=== PATIENT | female | born 1940 | race Asian ===

== ENCOUNTER 2018-08-12 10:34 | Inpatient (IN) | END 2018-08-13 16:00 | disposition home or self-care (01) | DRG 310 ==

== ENCOUNTER 2018-09-10 21:25 | Inpatient (IN) | payer OTHER ==
[~2018-09-10] VITALS: Ht 160 cm; Wt 80.5 kg
[~2018-09-10 21:25] MED LIST: ACET-2047 PO; APIX5TAB PO; BENA10TA4 PO; CARSR60 PO; CLC1500T PO; METO-319 PO; NITR0.4T32 SL
[2018-09-10] MEDS ORDERED: SODIUM CHLORIDE 0.9% 1L BAG IV* STA (21:46)
[2018-09-10] MEDS ORDERED: CEFEPIME 2GM/50 ML (PMX) 50 ML IVPB STA (21:46)
[2018-09-10] MEDS ORDERED: ACETAMINOPHEN 325 MG TAB PO STA (21:46)
[2018-09-10] MEDS ORDERED: VANCOMYCIN 1 GM (PMX) 250 ML IVPB ONE (22:00)
[2018-09-10] MEDS ORDERED: ONDANSETRON 4 MG INJ IV PRN (23:00)
[2018-09-10] MEDS ORDERED: ACETAMINOPHEN 325 MG TAB PO PRN (23:00)
[2018-09-10] MEDS ORDERED: LOSA1TAB25 PO (23:19)
[2018-09-10] MEDS ORDERED: AMLO-147 PO (23:19)
[2018-09-10] MEDS ORDERED: MULTI PO (23:20)
--- NOTE | 2018-09-10 23:25 | ERD ---
ER Documentation Chief Complaint Chief Complaint right abdominal pain x since last night at 8 pm HPI 78-year-old female presents with the family. The patient reports right-sided abdominal pain since last night. The pain is sharp, 8 out of 10. She feels generalized weakness and malaise. Patient is noted to have low blood pressure at triage. She describes anorexia and low-grade fever. No prior abdominal surgical history. ROS All systems reviewed and are negative except as per history of present illness. Medications Home Meds Active Scripts Diltiazem Hcl* (Cardizem SR*) 60 Mg Capsr, 60 MG PO DAILY, #30 CAP Prov:MONTENGUYỄN GALICIA V. HOUSING INSPECTOR 08/13/18 Reported Medications Multivitamins* (Theragran*) 1 Tab Tab, 1 TAB PO DAILY, TAB 09/10/18 Amlodipine Besylate* (Amlodipine Besylate*) 10 Mg Tablet, 10 MG PO DAILY, #30 TAB 09/10/18 Losartan-Hydrochlorothiazide (Losartan-HCTZ) 100-25 Mg Tab, 1 TAB PO DAILY, TAB 09/10/18 Nitroglycerin* (Nitroglycerin* SL) 0.4 Mg Tab.subl, 0.4 MG SL Q5MIN PRN for CHEST PAIN, BOTTLE 08/12/18 Metoprolol Succinate* (Toprol XL*) 50 Mg Tab.er.24h, 50 MG PO DAILY, #30 TAB 08/12/18 Apixaban* (Eliquis*) 5 Mg Tablet, 5 MG PO BID, TAB 08/12/18 Acetaminophen* (Acetaminophen*) 650 Mg Tablet, 650 MG PO Q6H PRN for PAIN AND OR ELEVATED TEMP, #30 TAB 08/12/18 Discontinued Reported Medications Calcium Carbonate* (Caltrate-600*) 600 MG Calcium Tab, 600 MG PO BID, TAB (1500 mg Calcium Carbonate) 08/12/18 Benazepril Hcl* (Benazepril Hcl*) 10 Mg Tablet, 30 MG PO DAILY, #30 TAB 08/12/18 Discontinued Scripts Diltiazem Hcl* (Cardizem SR*) 60 Mg Capsr, 60 MG PO DAILY, #60 CAP Prov:MONTEJASS GALICIAA V. HOUSING INSPECTOR 08/13/18 Allergies Allergies: Coded Allergies: No Known Allergy (Unverified , 08/12/18) PMhx/Soc History of Surgery: No Anesthesia Reaction: No Hx Neurological Disorder: No Hx Respiratory Disorders: No Hx Cardiac Disorders: Yes (AF) Hx Psychiatric Problems: No Hx Miscellaneous Medical Probl: No Hx Alcohol Use: No Hx Substance Use: No Hx Tobacco Use: No FmHx Family History: No diabetes Physical Exam Vitals Vital Signs Date Temp Pulse Resp B/P (MAP) Pulse Ox O2 O2 Flow FiO2 Time Delivery Rate 09/10/18 89 23 102/65 94 Room Air 23:20 (77) 09/10/18 86 20 99/67 (78) 99 Room Air 22:46 09/10/18 100.0 22:28 09/10/18 100.0 82 18 86/51 (63) 96 21:29 Physical Exam General: Well developed, well nourished, no acute distress Head: Normocephalic, atraumatic. Eyes: Pupils equally reactive, EOM intact ENT: Moist mucous membranes Neck: Supple, no lymphadenopathy Respiratory: Lungs clear bilaterally, no distress Cardiovascular: Irregular, no murmurs, rubs, or gallops Abdominal: Soft, focal tenderness to the right lower quadrant at McBurney's point : Deferred MSK: No edema, no unilateral swelling, 5/5 strength Neurologic: Alert and oriented, moving all extremities, normal speech, no focal weakness, no cerebellar signs Skin: No rash Psych: Normal mood Result Diagram: 09/10/18220109/10/182201 Results 24 hrs Laboratory Tests Test 09/10/18 22:02 09/10/18 22:06 White Blood Count 12.7 10^3/ul Red Blood Count 3.82 10^6/ul Hemoglobin 11.5 g/dl Hematocrit 34.4 % Mean Corpuscular Volume 90.1 fl Mean Corpuscular Hemoglobin 30.1 pg Mean Corpuscular Hemoglobin Concent 33.4 g/dl Red Cell Distribution Width 13.5 % Platelet Count 49 10^3/UL Mean Platelet Volume 11.7 fl Immature Granulocytes % 0.400 % Neutrophils % 89.5 % Lymphocytes % 5.7 % Monocytes % 4.2 % Eosinophils % 0.0 % Basophils % 0.2 % Nucleated Red Blood Cells % 0.0 /100WBC Immature Granulocytes # 0.050 10^3/ul Neutrophils # 11.3 10^3/ul Lymphocytes # 0.7 10^3/ul Monocytes # 0.5 10^3/ul Eosinophils # 0.0 10^3/ul Basophils # 0.0 10^3/ul Nucleated Red Blood Cells # 0.0 10^3/ul Prothrombin Time 16.0 Sec Prothrombin Time Ratio 1.3 INR International Normalized Ratio 1.27 Activated Partial Thromboplast Time 37.8 Sec Sodium Level 137 mmol/L Potassium Level 3.3 mmol/L Chloride Level 97 mmol/L Carbon Dioxide Level 30 mmol/L Anion Gap 10 Blood Urea Nitrogen 30 mg/dl Creatinine 1.49 mg/dl Est Glomerular Filtrat Rate mL/min mL/min Glucose Level 173 mg/dl Calcium Level 9.3 mg/dl Total Bilirubin 0.6 mg/dl Direct Bilirubin 0.00 mg/dl Indirect Bilirubin 0.6 mg/dl Aspartate Amino Transf (AST/SGOT) 24 IU/L Alanine Aminotransferase (ALT/SGPT) 12 IU/L Alkaline Phosphatase 58 IU/L Troponin I < 0.012 ng/ml Total Protein 7.3 g/dl Albumin 3.9 g/dl Globulin 3.40 g/dl Albumin/Globulin Ratio 1.14 Lipase 61 U/L POC Venous Lactate 1.7 mmol/L Current Medications Medications Dose Sig/Ganesh Start Time Status Last (Trade) Ordered Route PRN Stop Time Admin Dose Reason Admin Sodium 2,050 ml BOLUS OVER 2 09/10/18 DC 09/10/18 Chloride HOURS STAT 21:46 22:39 (NS) IV* 09/10/18 21:48 650 mg ONCE STAT 09/10/18 DC 09/10/18 Acetaminophen PO 21:46 22:28 (Tylenol 09/10/18 21:48 Tab) Cefepime HCl 50 ml @ ONCE STAT 09/10/18 DC 09/10/18 100 mls/hr IVPB 21:46 22:26 09/10/18 22:15 Vancomycin 250 ml @ ONCE ONCE 09/10/18 09/10/18 HCl 125 mls/hr IVPB 22:00 23:03 09/10/18 23:59 Ondansetron 4 mg ER BRIDGE 09/10/18 HCl (Zofran PRN IV 23:00 Inj) NAUSEA AND/OR 09/11/18 22:59 VOMITING 650 mg ER BRIDGE 09/10/18 Acetaminophen PRN PO MILD 23:00 (Tylenol PAIN(1-3)OR 09/11/18 22:59 Tab) ELEVATED TEMP Procedures/MDM EKG, MONITORS, & DIAGNOSTIC IMAGING: EKG: I reviewed and interpreted a 12-lead EKG. Rhythm: Irregularly irregular ST Changes: No contiguous ST segment elevations T waves: No contiguous T wave inversions Impression: A. fib rate controlled Chest x-ray: I reviewed and interpreted a 1 view of the chest Mediastinum: No enlargement Cardiac silhouette: No cardiomegaly Airspace: Clear lung fish bilaterally without evidence of pneumothorax Bones: No evidence of fracture CT abdomen and pelvis: IMPRESSION: CT of the abdomen pelvis demonstrate changes consistent with acute appendicitis with possible early perforation. No abscess formation is seen. There is no free air. Likely fatty infiltration liver. Cholelithiasis. LAB INTERPRETATION: * The patient is leukocytosis with left shift, thrombus cytopenia 49 * Chemistry shows slight renal insufficiency slightly worse than baseline. Normal lactic acid 1.7, negative troponin MEDICAL DECISION MAKING: The patient presents with low-grade fever, low blood pressure and focal right lower quadrant abdominal pain. This raises the concern for acute appendicitis. The patient needs sepsis screening, fluid resuscitation and broad-spectrum antibiotics. ER COURSE: * Patient was given a 30 cc/kg bolus of saline. Blood cultures prior to broad- spectrum antibiotics in the form of vancomycin and cefepime. Pain control medication provided. * Antipyretic provided * the patient's laboratory testing and diagnostic imaging confirm acute appendicitis with possible perforation. * The patient's blood pressure dramatically improved with fluid resuscitation. Her lactic acid is reassuring. I do not believe a central line or pressors are indicated at this time. Continue to monitor. * General surgeon on-call, Dr. Matthew notified of the patient's clinical presentation, diagnosis CONSULTATION: General surgeonDr. Matthew DISPOSITION PLAN: Patient will be admitted to telemetry given the patient's initial low blood pressure Accepting care team and consultations: I discussed the current laboratory data, diagnostic imaging and emergency care provided. Admitting team: Dr. Quevedo Admitting team indication: Insurance directed Sepsis Documentation: Patient's infectious symptoms have not stabilized and the patient is at risk of rapid decompensation. The patient will be admitted for careful hydration, antibiotic therapy, and infectious source control. SEVERE SEPSIS CRITERIA: Infectious source: Acute appendicitis End organ damage indicated by: At this point the patient does not meet criteria for endocrine dysfunction SEPSIS MANAGEMENT Time of recognition of sepsis: Upon MD assessment. Time of recognition of severe sepsis: No severe sepsis at this time. Time of recognition of septic shock: No septic shock at this time. 3 HOUR BUNDLE Blood cultures x 2 before broad-spectrum antibiotics: Yes 30 ml/kg NS bolus completed Initial lactate less than 2 Repeat lactate pending SEPTIC SHOCK ASSESSMENT: No lactic acid > 4.0 No persistent hypotension (SBP < 90 or 40 mmHg drop, MAP < 65) despite 30 mL/kg IV fluid bolus VOLUME REASSESSMENT FOR SEPTIC SHOCK: The patient does not meet criteria for septic shock in the emergency department at this time PERSISTENT HYPOTENSION TREATMENT: Comfort care no Central line not Required Vasopressor started not required I considered further perfusion assessment with CVP measurement, SCVO2, bedside ultrasound volume assessment, passive leg raise, trial of further fluid bolus. And proceeded with 30 ml/kg fluid bolus of NSS, broad spectrum antibiotics, and admission. CRITICAL CARE Critical care time 35 minutes Emergent fluid management while maintaining close respiratory support. Provision of immediate and broad-spectrum antibiotic therapy. Simultaneous assessment for possible sources in order to direct targeted therapy. Consideration for invasive and chemical support to prevent cardiopulmonary collapse. Critical care time is independent of procedures performed. Departure Diagnosis: Primary Impression: Acute appendicitis Acute appendicitis type: with localized peritonitis Appendicitis gangrene presence: unspecified whether gangrene present Appendicitis perforation presence: with perforation Appendicitis abscess presence: without abscess Qualified Codes: K35.32 - Acute appendicitis with perforation and localized peritonitis, without abscess Additional Impressions: Thrombocytopenia Atrial fibrillation with controlled ventricular rate Acute renal insufficiency Sepsis Sepsis type: sepsis due to unspecified organism Qualified Codes: A41.9 - Sepsis, unspecified organism Condition: Stable FORTINO LAURENT MD Sep 10, 2018 23:25
[2018-09-10] MEDS ORDERED: METO-335 PO (23:39)
--- NOTE | 2018-09-10 23:55 | CONS ---
Date/Time of Note Date/Time of Note DATE: 09/10/18 TIME: 23:51 Assessment/Plan Assessment/Plan Assessment/Plan 78-year-old female history of atrial fibrillation hypertension hyperlipidemia presents with reported prior history of worsening right lower quadrant abdominal pain. Evaluation including imaging tests and labs consistent with acute appendicitis possible microperforation without evidence of abscess. I discussed with the patient and her 2 children were present risk benefits alternatives for laparoscopic appendectomy especially the patient on Eliquis. However I did describe the it is unlikely this will resolve on its own and she is would be at further risk of this is done as an emergent basis. Recommendation for laparoscopic appendectomy possible open. The details of procedure risk versus alternatives were discussed at this time patient would like to proceed with recommended procedure last dose of Eliquis was this morning (she is taking this twice a day) , however the risk of delaying surgery for another 24 hours I think is much greater than the potential risk of any wheezing in a patient with a near perforated appendix. Patient agreed to proceed and or team is present we will proceed to the operating room as soon as a room is free. Result Diagram: 09/10/18220109/10/182201 Results 24hrs Laboratory Tests Test 09/10/18 22:02 09/10/18 22:06 White Blood Count 12.7 #H Red Blood Count 3.82 L Hemoglobin 11.5 L Hematocrit 34.4 L Mean Corpuscular Volume 90.1 Mean Corpuscular Hemoglobin 30.1 Mean Corpuscular Hemoglobin Concent 33.4 Red Cell Distribution Width 13.5 Platelet Count 49 L Mean Platelet Volume 11.7 H Immature Granulocytes % 0.400 Neutrophils % 89.5 H Lymphocytes % 5.7 L Monocytes % 4.2 Eosinophils % 0.0 Basophils % 0.2 Nucleated Red Blood Cells % 0.0 Immature Granulocytes # 0.050 H Neutrophils # 11.3 H Lymphocytes # 0.7 L Monocytes # 0.5 Eosinophils # 0.0 Basophils # 0.0 Nucleated Red Blood Cells # 0.0 Prothrombin Time 16.0 H Prothrombin Time Ratio 1.3 INR International Normalized Ratio 1.27 Activated Partial Thromboplast Time 37.8 H Sodium Level 137 Potassium Level 3.3 L Chloride Level 97 Carbon Dioxide Level 30 Anion Gap 10 Blood Urea Nitrogen 30 H Creatinine 1.49 H Est Glomerular Filtrat Rate mL/min Glucose Level 173 Calcium Level 9.3 Total Bilirubin 0.6 Direct Bilirubin 0.00 Indirect Bilirubin 0.6 Aspartate Amino Transf (AST/SGOT) 24 Alanine Aminotransferase (ALT/SGPT) 12 L Alkaline Phosphatase 58 Troponin I < 0.012 Total Protein 7.3 Albumin 3.9 Globulin 3.40 H Albumin/Globulin Ratio 1.14 Lipase 61 POC Venous Lactate 1.7 Consultation Date/Type/Reason Admit Date/Time Date of Consultation: Sep 10, 2018 Type of Consult Surgical consultation Reason for Consultation Abdominal pain CT is consistent with acute appendicitis possible microperforation Requesting Provider: FORTINO LAURENT MD Hx of Present Illness Patient is brought by her children to the emergency room after seeing her primary care doctor earlier today for evaluation of right-sided abdominal pain. Patient states the pain got progressively worse throughout the day she was scheduled to get a outpatient ultrasound but as the pain got worse the presented to the emergency room for evaluation patient has history of hypertension and hyperlipidemia atrial fibrillation for which she is on Eliquis last Eliquis dose was this morning. Patient denies any past surgical history Past Medical History Medications Current Medications Vancomycin HCl 250 ml @ 125 mls/hr ONCE ONCE IVPB Last administered on 09/10/18at 23:03; Admin Dose 125 MLS/HR; Start 09/10/18 at 22:00; Stop 09/10/18 at 23:59 Ondansetron HCl (Zofran Inj) 4 mg ER BRIDGE PRN IV NAUSEA AND/OR VOMITING; Start 09/10/18 at 23:00; Stop 09/11/18 at 22:59 Acetaminophen (Tylenol Tab) 650 mg ER BRIDGE PRN PO MILD PAIN(1-3)OR ELEVATED TEMP; Start 09/10/18 at 23:00; Stop 09/11/18 at 22:59 Allergies: Coded Allergies: No Known Allergy (Unverified , 08/12/18) Exam/Review of Systems Vital Signs Vitals Vital Signs Date Temp Pulse Resp B/P (MAP) Pulse Ox O2 O2 Flow FiO2 Time Delivery Rate 09/10/18 88 19 100/61 97 Room Air 23:30 (74) 09/10/18 100.0 22:28 Exam Gastrointestinal: tender (Right lower quad) Medications Medications Current Medications Vancomycin HCl 250 ml @ 125 mls/hr ONCE ONCE IVPB Last administered on 09/10/18at 23:03; Admin Dose 125 MLS/HR; Start 09/10/18 at 22:00; Stop 09/10/18 at 23:59 Ondansetron HCl (Zofran Inj) 4 mg ER BRIDGE PRN IV NAUSEA AND/OR VOMITING; Start 09/10/18 at 23:00; Stop 09/11/18 at 22:59 Acetaminophen (Tylenol Tab) 650 mg ER BRIDGE PRN PO MILD PAIN(1-3)OR ELEVATED TEMP; Start 09/10/18 at 23:00; Stop 09/11/18 at 22:59 GIOVANNY GANN MD Sep 10, 2018 23:55
[2018-09-11] VITALS (23 sets, daily range): BP systolic 83–117; BP diastolic 47–70; PULSE 73–97; RESP 18–22; Ht 160 cm; Wt 80.5 kg
--- NOTE | 2018-09-11 01:06 | PREAC ---
Date/Time of Note Date/Time of Note DATE: 09/11/18 TIME: 01:04 Anesthesia Eval and Record Evaluation Time Pre-Procedure Interview DATE: 09/11/18 TIME: 01:04 Age 78 Sex female NPO: 6 hrs (light meal) Preoperative diagnosis acute appendicitis Planned procedure laparoscopic appendicitis Past Medical History Past Medical History: Includes Cardio: HTN, Dyslipidemia, Arrythmia (atrial fibrillation) Surgery & Anesthesia Issues No known issue Meds Anticoagulation: Yes (last dose yesterday morning ) Beta Aron within 24 hr: Yes Reason Beta Aron not given: Bradycarida, Hypotension Active Scripts Diltiazem Hcl* (Cardizem SR*) 60 Mg Capsr, 60 MG PO DAILY, #30 CAP Prov:MONTENGUYỄNERICA Stephens SPA MANAGER/ESTHETICIAN 08/13/18 Reported Medications Metoprolol Succinate* (Toprol XL*) 25 Mg Tab.sr.24h, 25 MG PO QPM, #30 TAB 09/10/18 Multivitamins* (Theragran*) 1 Tab Tab, 1 TAB PO DAILY, TAB 09/10/18 Amlodipine Besylate* (Amlodipine Besylate*) 10 Mg Tablet, 10 MG PO DAILY, #30 TAB 09/10/18 Losartan-Hydrochlorothiazide (Losartan-HCTZ) 100-25 Mg Tab, 1 TAB PO DAILY, TAB 09/10/18 Nitroglycerin* (Nitroglycerin* SL) 0.4 Mg Tab.subl, 0.4 MG SL Q5MIN PRN for CHEST PAIN, BOTTLE 08/12/18 Metoprolol Succinate* (Toprol XL*) 50 Mg Tab.er.24h, 50 MG PO QAM, #30 TAB 08/12/18 Apixaban* (Eliquis*) 5 Mg Tablet, 5 MG PO BID, TAB 08/12/18 Acetaminophen* (Acetaminophen*) 650 Mg Tablet, 650 MG PO Q6H PRN for PAIN AND OR ELEVATED TEMP, #30 TAB 08/12/18 Discontinued Reported Medications Calcium Carbonate* (Caltrate-600*) 600 MG Calcium Tab, 600 MG PO BID, TAB (1500 mg Calcium Carbonate) 08/12/18 Benazepril Hcl* (Benazepril Hcl*) 10 Mg Tablet, 30 MG PO DAILY, #30 TAB 08/12/18 Discontinued Scripts Diltiazem Hcl* (Cardizem SR*) 60 Mg Capsr, 60 MG PO DAILY, #60 CAP Prov:NGUYỄN MONTE VEvgeny ELKINS 08/13/18 Current Medications Ondansetron HCl (Zofran Inj) 4 mg ER BRIDGE PRN IV NAUSEA AND/OR VOMITING; Start 09/10/18 at 23:00; Stop 09/11/18 at 22:59 Acetaminophen (Tylenol Tab) 650 mg ER BRIDGE PRN PO MILD PAIN(1-3)OR ELEVATED TEMP; Start 09/10/18 at 23:00; Stop 09/11/18 at 22:59 Meds reviewed: Yes Allergies Coded Allergies: No Known Allergy (Unverified , 08/12/18) Allergies Reviewed: Yes Labs/Studies Labs Reviewed: Reviewed by anesthesiologist Result Diagram: 09/10/18220109/10/182201 Laboratory Tests 09/10/18 22:02 test: N/A Pre-procedure Exam Last vitals Vital Signs Date Temp Pulse Resp B/P (MAP) Pulse Ox O2 O2 Flow FiO2 Time Delivery Rate 09/11/18 98.6 80 21 100/61 97 Room Air 00:21 (74) Airway: Adequate mouth opening, Adequate thyromental dist Mallampati: Mallampati II Teeth: Normal Lung: Normal Heart: Normal ASA Physical Status ASA physical status: 3 Emergency: None Planned Anesthetic General/MAC: ETT Planned Pain Management Parenteral pain med Pre-operative Attestations Prior to commencing anesthesia and surgery, the patient was re-evaluated, there was verification of: *The patient's identity *The results of appropriate recent lab work and preoperative vital signs *The above evaluation not changing prior to induction *Anesthetic plan, risk benefits, alternative and complications discussed with patient/family; questions answered; patient/family understands, accepts and wishes to proceed. SANYA MEDEL MD Sep 11, 2018 01:06
[2018-09-11] MEDS ORDERED: BUPIVACAINE 0.5%/EPI (SDV) 30 ML INJ ONE (01:22)
[2018-09-11] MEDS ORDERED: FENTAnyl 50 MCG/ML VIAL ONE (01:29)
[2018-09-11] MEDS ORDERED: LIDOCAINE 2% (SDV) 5 ML INJ ONE (01:29)
[2018-09-11] MEDS ORDERED: ONDANSETRON 4 MG INJ IV PRN ×2 (01:30→03:00)
[2018-09-11] MEDS ORDERED: HYDROmorphONE 1 MG/5 ML IV SYRINGE IV PRN ×2 (01:30)
[2018-09-11] MEDS ORDERED: DIPHENHYDRAMINE 50 MG INJ IV PRN (01:30)
[2018-09-11] MEDS ORDERED: FENTAnyl 50 MCG/ML VIAL IV PRN (01:30)
[2018-09-11] MEDS ORDERED: LABETALOL HCL 20MG INJ IV PRN (01:30)
[2018-09-11] MEDS ORDERED: MEPERIDINE 25 MG INJ IV PRN (01:30)
[2018-09-11] MEDS ORDERED: PROCHLORPERAZINE 10 MG INJ IV PRN (01:30)
[2018-09-11] MEDS ORDERED: hydrALAzine 20 MG INJ IV PRN (01:30)
[2018-09-11] MEDS ORDERED: FAMOTIDINE 20 MG INJ ONE (01:34)
[2018-09-11] MEDS ORDERED: PHENYLephrine (100 MCG/ML) 10ML SYG ONE ×2 (01:39→02:43)
[2018-09-11] MEDS ORDERED: LIDOCAINE 1% (MPF) 30 ML INJ ONE (01:56)
[2018-09-11] MEDS ORDERED: SUCCINYLCHOLINE CHLORIDE 100 MG/5 ML SYG IV ONE (02:05)
[2018-09-11] MEDS ORDERED: PROPOFOL 20 ML ONE (02:05)
[2018-09-11] MEDS ORDERED: ROCURONIUM 50 MG INJ ONE (02:05)
[2018-09-11] MEDS ORDERED: ONDANSETRON 4 MG INJ ONE (02:06)
[2018-09-11] MEDS ORDERED: DEXAMETHASONE 4 MG/ML 5 ML INJ ONE (02:06)
[2018-09-11] MEDS ORDERED: GLYCOPYRROLATE 0.4 MG INJ ONE (02:32)
[2018-09-11] MEDS ORDERED: NEOSTIGMINE 3 MG/3 ML SYRINGE ONE (02:32)
--- NOTE | 2018-09-11 02:54 | OPR ---
Date/Time of Note Date/Time of Note DATE: 09/11/18 TIME: 02:48 Operative Report Procedure Date: Sep 11, 2018 Preoperative Diagnosis Acute appendicitis possible perforation Postoperative Diagnosis Perforated appendicitis with peritonitis Operation/Procedure Performed Laparoscopic appendectomy and abdominal washout Surgeon Giovanny Matthew MD see signature line Java Programming Professor None Anesthesia Type: general Anesthesiologist: SANYA MEDEL MD Estimated Blood Loss: minimal Transfusion none Specimen Appendix and peritoneal fluid for culture Grafts/Implants none Tubes/Drains None Complications none Pt Condition Post Procedure: stable Disposition: PACU Indications Patient presented to the emergency room with several hours of worsening abdom inal pain migrating to the right lower quadrant. Presented to primary care doctor earlier in the day and was going to have outpatient ultrasound however his pain worsened she presented to the emergency room for evaluation she was noted to be relatively hypotensive complaining of severe pain in the right lower quadrant labs revealed mildly elevated white blood cell count CAT scan showed appendicitis with possible perforation with some fluid and air around the appendix. I saw the patient in consultation in the emergency room and recommended urgent lap laparoscopic appendectomy patient also has been taking Eliquis for her atrial fibrillation last dose was this morning she did not take her evening dose. 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 (This is a chronic condition however). In addition with perforation she has increased risk for postoperative complications both immediate and long-term with possible intra-abdominal or pelvic abscesses which may be need to be treated further. Patient was seen together with her son and agreed to proceed with the above recommendation. Procedure Description Patient brought to the operating placed supine position general anesthesia administered with endotracheal intubation the patient prepped draped standard sterile fashion timeout was completed. A Veress needle was used left upper quadrant Carrero's point insufflation delivered to maintain pneumoperitoneum 50 was mercury throughout the procedure course of marker was used half percent Marcaine with epinephrine was used to infiltrate the trocar sites a small stab incision was made 4 cm above the umbilicus and a 5 mm trocar was inserted under direct visualization with 30 degrees femoral laparoscope the varies needle was removed immediately was noted that there was peritonitis with fibrinous exudate and pus in multiple areas. The 2 additional trochars infraumbilical and suprapubic 12 mm trocar was inserted next patient was placed in right side up and slight rounded buried position the abdomen was irrigated and aspirated and some the accumulated fluid on the right gutter was aspirated and sent for Gram stain aerobes anaerobes and fungal. The cecum was identified and the appendix was markedly thickened there was an obvious perforation with a gangrenous midportion of the appendix. This was able to be elevated and from adjacent adherent loops of bowel and with [place] dissector a window was made at the base of the appendix and the mesoappendix. An [place] 30 mm vascular load was used to come across the base of the appendix and a second application for the mesoappendix. There was slight oozing which was controlled with monopolar cautery. The abdomen was irrigated with 2 L of warm normal saline up to the diaphragm down to the pelvis and the patient was positioned and then alternating positions to accumulated aspirated most of the fluid. As a secondary reinforcement for hemostasis 5 cc of FloSeal were instilled along the staple line. Inspection for any further bleeding revealed that there was good hemostasis the pneumoperitoneum was allowed to return to normal as the trochars were removed because of the patient's thick subcutaneous tissue was not felt necessary to close the 12 mm port site. Skin incisions closed with 4-0 Monocryl both buried subcuticular and interrupted on the skin and reinforced with Dermabond. Patient was explained the operative brought recovery in stable condition. Sponge needle count correct x2. GIOVANNY MATTHEW MD Sep 11, 2018 02:54
[2018-09-11] MEDS ORDERED: ACETAMINOPHEN 325 MG TAB PO PRN (03:00)
[2018-09-11] MEDS ORDERED: HYDROmorphONE 0.5 MG/0.5 ML SYG IV PRN (03:00)
[2018-09-11] MEDS ORDERED: EPHEDrine SULFATE 50 MG/5 ML SYG IV PRN (03:00)
[2018-09-11] MEDS ORDERED: METOCLOPRAMIDE 10 MG INJ IV PRN (03:00)
--- NOTE | 2018-09-11 03:01 | PAC ---
Date/Time of Note Date/Time of Note DATE: 09/11/18 TIME: 02:59 Post-Anesthesia Notes Post-Anesthesia Note Last documented vital signs Vital Signs Date Temp Pulse Resp B/P (MAP) Pulse Ox O2 O2 Flow FiO2 Time Delivery Rate 09/11/18 98.6 80 21 100/61 97 Room Air 00:21 (74) Activity: WNL Respiratory function: WNL Cardiovascular function: WNL Mental status: Baseline Pain reasonably controlled: Yes Hydration appropriate: Yes Nausea/Vomiting absent: Yes Comments BP: 91/60 HR: 75 RR: 15 T: 98.6 SaO2: 97% SANYA MEDEL MD Sep 11, 2018 03:01
[2018-09-11] MEDS: D5W-0.45 NACL + KCL 20 MEQ 1,000 ML IV SCH ×4 (04:07→22:47)
[2018-09-11] MEDS ORDERED: NITROGLYCERIN (SL) 0.4 MG TAB SL PRN (05:00)
[2018-09-11] MEDS ORDERED: SOD CHLORIDE 0.9% 250 ML IV ONE (05:00)
[2018-09-11] MEDS: PIPER-TAZO 3.375 GM IV (PMX) 100 ML IVPB SCH ×4 (05:16→23:42)
--- NOTE | 2018-09-11 06:55 | HP ---
Date/Time of Note Date/Time of Note DATE: 09/11/18 TIME: 06:53 Assessment/Plan VTE Prophylaxis [place] [facility] risk: 5 SCD applied ([place] [facility] Yes Pharmacological prophylaxis: heparin Lines/Catheters IV C[facility]ter Type (from [facility]): Peripheral IV Urinary Cath still in place: No Assessment/Plan Assessment/Plan 1. Perforated appendicitis: Status post laparoscopic appendectomy -Advance diet as tolerated -Follow-up surgical recommendations 2. Hypertension: BP on the lower side and as such we will hold BP meds for now 3. Atrial fibrillation: Rate controlled. Hold diltiazem given BP on the lower side. Hold Eliquis for now until ok'd by surgery to resume Result Diagram: 09/10/18 2202 09/11/18 0507 Results 24hrs Laboratory Tests Test 09/10/18 22:02 09/10/18 22:06 09/11/18 00:06 09/11/18 00:26 White Blood Count 12.7 #H Red Blood Count 3.82 L Hemoglobin 11.5 L Hematocrit 34.4 L Mean Corpuscular 90.1 Volume Mean Corpuscular 30.1 Hemoglobin Mean Corpuscular 33.4 Hemoglobin Concent Red Cell 13.5 Distribution Width Platelet Count 49 L Mean Platelet Volume 11.7 H Immature 0.400 Granulocytes % Neutrophils % 89.5 H Lymphocytes % 5.7 L Monocytes % 4.2 Eosinophils % 0.0 Basophils % 0.2 Nucleated Red Blood 0.0 Cells % Immature 0.050 H Granulocytes # Neutrophils # 11.3 H Lymphocytes # 0.7 L Monocytes # 0.5 Eosinophils # 0.0 Basophils # 0.0 Nucleated Red Blood 0.0 Cells # Prothrombin Time 16.0 H Prothrombin Time 1.3 Ratio INR International 1.27 Normalized Ratio Activated 37.8 H Partial Thromboplast Time Sodium Level 137 Potassium Level 3.3 L Chloride Level 97 Carbon Dioxide Level 30 Anion Gap 10 Blood Urea Nitrogen 30 H Creatinine 1.49 H Est Glomerular Filtrat Rate mL/min Glucose Level 173 Calcium Level 9.3 Total Bilirubin 0.6 Direct Bilirubin 0.00 Indirect Bilirubin 0.6 Aspartate Amino 24 Transf (AST/SGOT) Alanine 12 L Aminotransferase (AL T/SGPT) Alkaline Phosphatase 58 Troponin I < 0.012 Total Protein 7.3 Albumin 3.9 Globulin 3.40 H Albumin/Globulin 1.14 Ratio Lipase 61 POC Venous Lactate 1.7 1.3 Urine Color YELLOW Urine Clarity CLEAR Urine pH 5.0 Urine Specific 1.017 [place] Urine Ketones TRACE A Urine Nitrite NEGATIVE Urine Bilirubin NEGATIVE Urine Urobilinogen NEGATIVE Urine Leukocyte 1+ H Esterase Urine Microscopic 1 RBC Urine Microscopic 8 H WBC Urine Mucus FEW A Urine Hemoglobin NEGATIVE Urine Glucose 1+ H Urine Total Protein NEGATIVE Test 09/11/18 01:25 09/11/18 05:07 Lactic Acid Level 1.4 Sodium Level 139 Potassium Level 3.5 Chloride Level 102 Carbon Dioxide Level 28 Anion Gap 9 Blood Urea Nitrogen 23 H Creatinine 0.95 Est Glomerular Filtrat Rate mL/min Glucose Level 163 Calcium Level 7.9 L Total Bilirubin 0.5 Direct Bilirubin 0.00 Indirect Bilirubin 0.5 Aspartate Amino 21 Transf (AST/SGOT) Alanine 17 Aminotransferase (AL T/SGPT) Alkaline Phosphatase 39 L Total Protein 6.1 # Albumin 3.1 L Globulin 3.00 Albumin/Globulin 1.03 Ratio HPI/ROS Admit Date/Time Admit Date/Time Hx of Present Illness This is a 78-year-old female with a history of hypertension and atrial fibrillation who presents the ER complaining of abdominal pain. CT shows appendicitis with possible perforation. Patient has already underwent laparoscopic appendectomy and currently she is in stable condition. Except a minimal pain at the surgical site with movement, she does not have any complaint. She is already tolerating clear liquid diet. PMH/Family/Social Past Medical History Medications Current Medications Ondansetron HCl (Zofran Inj) 4 mg ER BRIDGE PRN IV NAUSEA AND/OR VOMITING; Start 09/10/18 at 23:00; Stop 09/11/18 at 22:59 Acetaminophen (Tylenol Tab) 650 mg ER BRIDGE PRN PO MILD PAIN(1-3)OR ELEVATED TEMP; Start 09/10/18 at 23:00; Stop 09/11/18 at 22:59 Ephedrine Sulfate 5 mg PACU ORDER PRN IV BLOOD PRESSURE SUPPORT; Start 09/11/18 at 03:00; Stop 09/11/18 at 07:00 Piperacillin Sod/ Tazobactam Sod 100 ml @ 200 mls/hr Q6 IVPB Last administered on 09/11/18at 05:16; Admin Dose 200 MLS/HR; Start 09/11/18 at 06:00 Metoclopramide HCl (Reglan) 10 mg Q6H PRN IV NAUSEA AND/OR VOMITING; Start 09/11/18 at 03:00 Ondansetron HCl (Zofran Inj) 4 mg Q6H PRN IV NAUSEA AND/OR VOMITING; Start 09/11/18 at 03:00 Acetaminophen (Tylenol Tab) 650 mg Q6H PRN PO PAIN LEVEL 1-3 OR FEVER; Start 09/11/18 at 03:00 Hydromorphone HCl (Dilaudid) 0.5 mg Q4H PRN IV PAIN LEVEL 8-10; Start 09/11/18 at 03:00 Potassium Chloride/Dextrose/ Sod Cl 1,000 ml @ 100 mls/hr Q10H IV Last administered on 09/11/18at 04:07; Admin Dose 100 MLS/HR; Start 09/11/18 at 02:47 Famotidine (Pepcid Iv) 20 mg Q12 IV ; Start 09/11/18 at 09:00 Nitroglycerin (Nitroglycerin (Sl Tab) 0.4 Mg) 1 tab Q5M PRN SL CHEST PAIN; Start 09/11/18 at 05:00 Coded Allergies: No Known Allergy (Unverified , 08/12/18) Family History Significant Family History: no pertinent family hx Social History Alcohol Use: none Smoking Status: Never smoker Drug Use: none Exam/Review of Systems Vital Signs Vitals Vital Signs Date Temp Pulse Resp B/P (MAP) Pulse Ox O2 O2 Flow FiO2 Time Delivery Rate 09/11/18 Nasal 4.0 04:30 Cannula 09/11/18 87 04:08 09/11/18 98.2 18 95/66 (76) 92 04:08 Intake and Output 09/10/18 09/10/18 09/11/18 1515:00 23:00 07:00 IntakeIntake Total 2150 ml OutputOutput Total 20 ml BalanceBalance 2130 ml Exam Exam Constitutional: alert, oriented, well developed, other Head: normocephalic, atraumatic Respiratory: normal air movement Cardiovascular: regular rate and rhythm Gastrointestinal: soft Extremities: normal pulses PMH: see HPI PSH: see HPI . GIOVANNY CORONADO MD Sep 11, 2018 06:55
[2018-09-11] MEDS: FAMOTIDINE 20 MG INJ IV SCH ×2 (08:09→21:26)
--- NOTE | 2018-09-11 14:55 | PN ---
Date/Time of Note Date/Time of Note DATE: 09/11/18 TIME: 14:54 Assessment/Plan VTE Prophylaxis Risk score (from Ns)>0 risk: 5 SCD applied (from Ns): Yes SCD contraindicated: low risk/ambulating Pharmacological prophylaxis: LMWH Lines/Catheters IV Catheter Type (from Nrs): Peripheral IV Urinary Cath still in place: No Assessment/Plan Hospital Course Assessment and plan 1. Acute appendicitis with local perforation, status post appendectomy, stable advance diet as appropriate 2. Chronic hypertension 3. Chronic atrial fibrillation, Eliquis when stable 4. Cholelithiasis 5. Cough suspected atelectasis Subjective moderate pain with activity. No fever dyspnea. Possible flatus x1 Objective: Vital signs stable A. fib rate controlled Physical exam No pallor JVD Regular no murmur or gallop Clear Bowel sounds diminished mild tender nondistended no RrG overweight No edema Result Diagram: 09/10/18 2202 09/11/18 0507 Results 24hrs Laboratory Tests Test 09/10/18 22:02 09/10/18 22:06 09/11/18 00:06 09/11/18 00:26 White Blood Count 12.7 #H Red Blood Count 3.82 L Hemoglobin 11.5 L Hematocrit 34.4 L Mean Corpuscular 90.1 Volume Mean Corpuscular 30.1 Hemoglobin Mean Corpuscular 33.4 Hemoglobin Concent Red Cell 13.5 Distribution Width Platelet Count 49 L Mean Platelet Volume 11.7 H Immature 0.400 Granulocytes % Neutrophils % 89.5 H Lymphocytes % 5.7 L Monocytes % 4.2 Eosinophils % 0.0 Basophils % 0.2 Nucleated Red Blood 0.0 Cells % Immature 0.050 H Granulocytes # Neutrophils # 11.3 H Lymphocytes # 0.7 L Monocytes # 0.5 Eosinophils # 0.0 Basophils # 0.0 Nucleated Red Blood 0.0 Cells # Prothrombin Time 16.0 H Prothrombin Time 1.3 Ratio INR International 1.27 Normalized Ratio Activated 37.8 H Partial Thromboplast Time Sodium Level 137 Potassium Level 3.3 L Chloride Level 97 Carbon Dioxide Level 30 Anion Gap 10 Blood Urea Nitrogen 30 H Creatinine 1.49 H Est Glomerular Filtrat Rate mL/min Glucose Level 173 Calcium Level 9.3 Total Bilirubin 0.6 Direct Bilirubin 0.00 Indirect Bilirubin 0.6 Aspartate Amino 24 Transf (AST/SGOT) Alanine 12 L Aminotransferase (AL T/SGPT) Alkaline Phosphatase 58 Troponin I < 0.012 Total Protein 7.3 Albumin 3.9 Globulin 3.40 H Albumin/Globulin 1.14 Ratio Lipase 61 POC Venous Lactate 1.7 1.3 Urine Color YELLOW Urine Clarity CLEAR Urine pH 5.0 Urine Specific 1.017 [place] Urine Ketones TRACE A Urine Nitrite NEGATIVE Urine Bilirubin NEGATIVE Urine Urobilinogen NEGATIVE Urine Leukocyte 1+ H Esterase Urine Microscopic 1 RBC Urine Microscopic 8 H WBC Urine Mucus FEW A Urine Hemoglobin NEGATIVE Urine Glucose 1+ H Urine Total Protein NEGATIVE Test 09/11/18 01:25 09/11/18 05:07 Lactic Acid Level 1.4 Sodium Level 139 Potassium Level 3.5 Chloride Level 102 Carbon Dioxide Level 28 Anion Gap 9 Blood Urea Nitrogen 23 H Creatinine 0.95 Est Glomerular Filtrat Rate mL/min Glucose Level 163 Calcium Level 7.9 L Total Bilirubin 0.5 Direct Bilirubin 0.00 Indirect Bilirubin 0.5 Aspartate Amino 21 Transf (AST/SGOT) Alanine 17 Aminotransferase (AL T/SGPT) Alkaline Phosphatase 39 L Total Protein 6.1 # Albumin 3.1 L Globulin 3.00 Albumin/Globulin 1.03 Ratio Exam/Review of Systems Vital Signs Vitals Vital Signs Date Temp Pulse Resp B/P (MAP) Pulse Ox O2 O2 Flow FiO2 Time Delivery Rate 09/11/18 89 12:00 09/11/18 98.1 18 99/65 (76) 96 11:04 09/11/18 Nasal 4.0 08:00 Cannula Intake and Output 09/10/18 09/10/18 09/11/18 1515:00 23:00 07:00 IntakeIntake Total 2150 ml OutputOutput Total 20 ml BalanceBalance 2130 ml Medications Medications Current Medications Ondansetron HCl (Zofran Inj) 4 mg ER BRIDGE PRN IV NAUSEA AND/OR VOMITING; Start 09/10/18 at 23:00; Stop 09/11/18 at 22:59 Acetaminophen (Tylenol Tab) 650 mg ER BRIDGE PRN PO MILD PAIN(1-3)OR ELEVATED TEMP; Start 09/10/18 at 23:00; Stop 09/11/18 at 22:59 Piperacillin Sod/ Tazobactam Sod 100 ml @ 200 mls/hr Q6 IVPB Last administered on 09/11/18at 11:31; Admin Dose 200 MLS/HR; Start 09/11/18 at 06:00 Metoclopramide HCl (Reglan) 10 mg Q6H PRN IV NAUSEA AND/OR VOMITING; Start 09/11/18 at 03:00 Ondansetron HCl (Zofran Inj) 4 mg Q6H PRN IV NAUSEA AND/OR VOMITING; Start 09/11/18 at 03:00 Acetaminophen (Tylenol Tab) 650 mg Q6H PRN PO PAIN LEVEL 1-3 OR FEVER; Start 09/11/18 at 03:00 Hydromorphone HCl (Dilaudid) 0.5 mg Q4H PRN IV PAIN LEVEL 8-10; Start 09/11/18 at 03:00 Potassium Chloride/Dextrose/ Sod Cl 1,000 ml @ 100 mls/hr Q10H IV Last administered on 09/11/18at 04:07; Admin Dose 100 MLS/HR; Start 09/11/18 at 02:47 Famotidine (Pepcid Iv) 20 mg Q12 IV Last administered on 09/11/18at 08:09; Admin Dose 20 MG; Start 09/11/18 at 09:00 Nitroglycerin (Nitroglycerin (Sl Tab) 0.4 Mg) 1 tab Q5M PRN SL CHEST PAIN; Start 09/11/18 at 05:00 RUDDY DOSS MD Sep 11, 2018 14:55
[2018-09-11] MEDS: GUAIFENESIN/DM 5ML CUP PO PRN (17:33)
[2018-09-12] VITALS (11 sets, daily range): BP systolic 106–118; BP diastolic 57–77; PULSE 86–108; RESP 16–18
[2018-09-12] MEDS: GUAIFENESIN/DM 5ML CUP PO PRN ×2 (01:53→21:56)
[2018-09-12] MEDS: D5W-0.45 NACL + KCL 20 MEQ 1,000 ML IV SCH ×2 (03:39→16:10)
[2018-09-12] MEDS: PIPER-TAZO 3.375 GM IV (PMX) 100 ML IVPB SCH ×4 (05:11→23:39)
[2018-09-12] MEDS: FAMOTIDINE 20 MG INJ IV SCH ×2 (08:30→09:00)
--- NOTE | 2018-09-12 23:51 | PN ---
Date/Time of Note Date/Time of Note DATE: 09/12/18 TIME: 23:50 Assessment/Plan VTE Prophylaxis Risk score (from Nsg)>0 risk: 6 SCD applied (from Ns): Yes SCD contraindicated: low risk/ambulating Pharmacological prophylaxis: LMWH Lines/Catheters IV Catheter Type (from Nrsg): Peripheral IV Urinary Cath still in place: No Assessment/Plan Hospital Course Assessment and plan 1. Acute appendicitis with local perforation, sp appendectomy, stable advance diet if okay with surgeon 2. Chronic hypertension 3. Chronic atrial fibrillation, Eliquis when stable 4. Cholelithiasis 5. Cough suspected atelectasis 6. Sepsis bacteremia, mod stable follow-up on cultures S 09/11 moderate pain with activity. No fever dyspnea. Possible flatus x1 09/12: Events noted no fever dyspnea. Positive flatus somewhat O: Vital signs stable A. fib rate controlled Pe No pallor JVD Regular no mrg Clear Bs dimin mild tender nd no RrG overweight No edema Result Diagram: 09/12/18 0447 09/11/18 0507 Results 24hrs Laboratory Tests Test 09/12/18 04:47 White Blood Count 12.5 H Red Blood Count 3.50 L Hemoglobin 10.7 L Hematocrit 32.4 L Mean Corpuscular Volume 92.6 Mean Corpuscular Hemoglobin 30.6 Mean Corpuscular Hemoglobin Concent 33.0 Red Cell Distribution Width 14.1 Platelet Count 214 # Mean Platelet Volume 13.3 H Immature Granulocytes % 0.600 H Neutrophils % Segmented Neutrophils % (Manual) 51 Band Neutrophils % (Manual) 23 H Lymphocytes % Lymphocytes % (Manual) 19 Reactive Lymphocytes % (Manual) 5 H Monocytes % Monocytes % (Manual) 2 Eosinophils % Basophils % Nucleated Red Blood Cells % 0.0 Immature Granulocytes # 0.070 H Neutrophils # Neutrophils # (Manual) 6.7 Band Neutrophils # 2.8 H Lymphocytes (Manual) 2.3 Lymphocytes # Reactive Lymphocytes # 0.6 H Monocytes # Monocytes # (Manual) 0.2 L Eosinophils # Basophils # Nucleated Red Blood Cells # Platelet Estimate NORMAL Giant Platelets 1 H Exam/Review of Systems Vital Signs Vitals Vital Signs Date Temp Pulse Resp B/P (MAP) Pulse Ox O2 O2 Flow FiO2 Time Delivery Rate 09/12/18 98.6 98 18 106/57 98 23:30 (73) 1/18/19 Nasal 3.0 07:31 Cannula Intake and Output 09/11/18 09/11/18 09/12/18 1414:59 22:59 06:59 IntakeIntake Total 1100 ml 1600 ml BalanceBalance 1100 ml 1600 ml Medications Medications Current Medications Piperacillin Sod/ Tazobactam Sod 100 ml @ 200 mls/hr Q6 IVPB Last administered on 09/12/18at 23:39; Admin Dose 200 MLS/HR; Start 09/11/18 at 06:00 Metoclopramide HCl (Reglan) 10 mg Q6H PRN IV NAUSEA AND/OR VOMITING; Start 09/11/18 at 03:00 Ondansetron HCl (Zofran Inj) 4 mg Q6H PRN IV NAUSEA AND/OR VOMITING; Start 09/11/18 at 03:00 Acetaminophen (Tylenol Tab) 650 mg Q6H PRN PO PAIN LEVEL 1-3 OR FEVER; Start 09/11/18 at 03:00 Hydromorphone HCl (Dilaudid) 0.5 mg Q4H PRN IV PAIN LEVEL 8-10; Start 09/11/18 at 03:00 Potassium Chloride/Dextrose/ Sod Cl 1,000 ml @ 100 mls/hr Q10H IV Last administered on 09/12/18at 16:10; Admin Dose 100 MLS/HR; Start 09/11/18 at 02:47 Nitroglycerin (Nitroglycerin (Sl Tab) 0.4 Mg) 1 tab Q5M PRN SL CHEST PAIN; Start 09/11/18 at 05:00 Guaifenesin/ Dextromethorphan (Robitussin Dm Liquid Cup) 10 ml Q4H PRN PO COUGH Last administered on 09/12/18at 21:56; Admin Dose 10 ML; Start 09/11/18 at 17:30 Famotidine (Pepcid Iv) 20 mg DAILY IV ; Start 09/12/18 at 09:00 Acetaminophen/ Hydrocodone Bitart ([place] ([address])) 1 tab Q6H PRN PO MODERATE PAIN LEVEL 4-6; Start 09/13/18 at 09:00 RUDDY DOSS MD Sep 12, 2018 23:51
[2018-09-13] VITALS (11 sets, daily range): BP systolic 105–129; BP diastolic 65–78; PULSE 83–117; RESP 16–18
[2018-09-13] MEDS: D5W-0.45 NACL + KCL 20 MEQ 1,000 ML IV SCH ×3 (05:12→17:29)
[2018-09-13] MEDS: PIPER-TAZO 3.375 GM IV (PMX) 100 ML IVPB SCH ×2 (05:38→12:12)
[2018-09-13] MEDS ORDERED: HYDROCODONE/APAP (10/325) TAB PO PRN (09:00)
[2018-09-13] MEDS: FAMOTIDINE 20 MG INJ IV SCH (09:36)
--- NOTE | 2018-09-13 16:45 | PN ---
Date/Time of Note Date/Time of Note DATE: 09/13/18 TIME: 16:43 Assessment/Plan VTE Prophylaxis Risk score (from Ns)>0 risk: 6 SCD applied (from Ns): Yes SCD contraindicated: low risk/ambulating Pharmacological prophylaxis: LMWH Lines/Catheters IV Catheter Type (from Nrs): Peripheral IV Urinary Cath still in place: No Assessment/Plan Hospital Course Assessment and plan 1. Acute appendicitis with local perforation, sp appendectomy, stable advanced diet 2. Chronic hypertension 3. Chronic atrial fibrillation, Eliquis restarted 4. Cholelithiasis 5. Cough suspected atelectasis 6. Sepsis bacteremia, mod stable follow-up on cultures 7. Thrombocytopenia. I was not called on this issue. Will repeat platelets and DC Zosyn Pepcid S 09/11 moderate pain with activity. No fever dyspnea. Possible flatus x1 09/12: Events noted no fever dyspnea. Positive flatus somewhat 09/13: No distress. No fever dyspnea advance diet O: Vital signs stable A. fib rate controlled Pe No pallor JVD Regular no mrg Clear Bs dimin mild tender nd no r/r/g; overweight No edema Result Diagram: 09/13/1852609/13/18 0527 Results 24hrs Laboratory Tests Test 09/13/18 05:27 White Blood Count 11.7 H Red Blood Count 3.48 L Hemoglobin 10.4 L Hematocrit 32.2 L Mean Corpuscular Volume 92.5 Mean Corpuscular Hemoglobin 29.9 Mean Corpuscular Hemoglobin Concent 32.3 Red Cell Distribution Width 14.3 Platelet Count 46 #L Mean Platelet Volume 12.5 H Immature Granulocytes % 0.800 H Neutrophils % 87.0 H Lymphocytes % 7.4 L Monocytes % 3.3 Eosinophils % 1.2 Basophils % 0.3 Nucleated Red Blood Cells % 0.0 Immature Granulocytes # 0.090 H Neutrophils # 10.2 H Lymphocytes # 0.9 Monocytes # 0.4 Eosinophils # 0.1 Basophils # 0.0 Nucleated Red Blood Cells # 0.0 Sodium Level 140 Potassium Level 4.1 Chloride Level 107 Carbon Dioxide Level 28 Anion Gap 5 Blood Urea Nitrogen 14 Creatinine 0.89 Est Glomerular Filtrat Rate mL/min Glucose Level 113 Calcium Level 8.0 L Magnesium Level 2.1 Total Bilirubin 0.1 L Direct Bilirubin 0.00 Indirect Bilirubin 0.1 Aspartate Amino Transf (AST/SGOT) 16 Alanine Aminotransferase (ALT/SGPT) 14 Alkaline Phosphatase 61 Total Protein 5.6 L Albumin 2.8 L Globulin 2.80 Albumin/Globulin Ratio 1.00 Exam/Review of Systems Vital Signs Vitals Vital Signs Date Temp Pulse Resp B/P (MAP) Pulse Ox O2 O2 Flow FiO2 Time Delivery Rate 09/13/18 98.2 113 16 129/65 97 15:22 (86) 09/13/18 Nasal 3.0 07:45 Cannula Intake and Output 09/12/18 09/12/18 09/13/18 1515:00 23:00 07:00 IntakeIntake Total 600 ml 1500 ml BalanceBalance 600 ml 1500 ml Medications Medications Current Medications Piperacillin Sod/ Tazobactam Sod 100 ml @ 200 mls/hr Q6 IVPB Last administered on 09/13/18at 12:12; Admin Dose 200 MLS/HR; Start 09/11/18 at 06:00 Metoclopramide HCl (Reglan) 10 mg Q6H PRN IV NAUSEA AND/OR VOMITING; Start 09/11/18 at 03:00 Ondansetron HCl (Zofran Inj) 4 mg Q6H PRN IV NAUSEA AND/OR VOMITING; Start 09/11/18 at 03:00 Acetaminophen (Tylenol Tab) 650 mg Q6H PRN PO PAIN LEVEL 1-3 OR FEVER; Start 09/11/18 at 03:00 Hydromorphone HCl (Dilaudid) 0.5 mg Q4H PRN IV PAIN LEVEL 8-10; Start 09/11/18 at 03:00 Potassium Chloride/Dextrose/ Sod Cl 1,000 ml @ 100 mls/hr Q10H IV Last administered on 09/13/18at 05:12; Admin Dose 100 MLS/HR; Start 09/11/18 at 02:47 Nitroglycerin (Nitroglycerin (Sl Tab) 0.4 Mg) 1 tab Q5M PRN SL CHEST PAIN; Start 09/11/18 at 05:00 Guaifenesin/ Dextromethorphan (Robitussin Dm Liquid Cup) 10 ml Q4H PRN PO COUGH Last administered on 09/12/18at 21:56; Admin Dose 10 ML; Start 09/11/18 at 17:30 Famotidine (Pepcid Iv) 20 mg DAILY IV Last administered on 09/13/18at 09:36; Admin Dose 20 MG; Start 09/12/18 at 09:00 Acetaminophen/ Hydrocodone Bitart ([place] ()) 1 tab Q6H PRN PO MODERATE PAIN LEVEL 4-6; Start 09/13/18 at 09:00 RUDDY DOSS MD Sep 13, 2018 16:45
[2018-09-13] MEDS: DILTIAZEM (SR) 60 MG CAP PO SCH (17:39)
[2018-09-13] MEDS: METOPROLOL (XL) 50 MG TAB PO SCH (17:40)
[2018-09-13] MEDS ORDERED: CEFTRIAXONE 2 GM/50 ML (PMX) 50 ML IVPB SCH (18:00)
[2018-09-13] MEDS: APIXABAN 5 MG TABLET PO SCH (20:11)
[2018-09-13] MEDS ORDERED: METOPROLOL (XL) 25 MG TAB PO SCH (21:00)
[2018-09-14] VITALS (7 sets, daily range): BP systolic 117–128; BP diastolic 61–75; PULSE 77–92; RESP 17–18
[2018-09-14] MEDS: APIXABAN 5 MG TABLET PO SCH (08:41)
[2018-09-14] MEDS: METOPROLOL (XL) 50 MG TAB PO SCH (08:41)
[2018-09-14] MEDS: DILTIAZEM (SR) 60 MG CAP PO SCH (08:42)
--- NOTE | 2018-09-14 11:40 | DS ---
Date/Time of Note Date/Time of Note DATE: 09/14/18 TIME: 11:37 Discharge Summary Admission/Discharge Info Admit Date/Time Sep 10, 2018 at 22:58 Discharge Date/Time Patient Condition: Stable Consults Dr Vipul Tang Appelvin. CT A/P IMPRESSION: CT of the abdomen pelvis demonstrate changes consistent with acute appendicitis with possible early perforation. No abscess formation is seen. There is no free air. Likely fatty infiltration liver. Cholelithiasis. Hx of Present Illness 78y F w abd pain Hospital Course Assessment and plan 1. Acute appendicitis with local perforation, sp appendectomy, stable dc home if ok w surgeon 2. Chronic hypertension 3. Chronic atrial fibrillation, Eliquis restarted 4. Cholelithiasis 5. Cough suspected atelectasis 6. Concern for bacteremia, however cultures/ results appear contaminated 7. Thrombocytopenia. I was not called on this issue. Will repeat platelets; DCed Zosyn Pepcid S 09/11 moderate pain with activity. No fever dyspnea. Possible flatus x1 09/12: Events noted no fever dyspnea. Positive flatus somewhat 09/13: No distress. No fever dyspnea advance diet 09/14: doing great Home Meds Active Scripts Diltiazem Hcl* (Cardizem SR*) 60 Mg Capsr, 60 MG PO DAILY, #30 CAP Prov:NGUYỄN MONTE V. IT COMPLIANCE ANALYST 08/13/18 Reported Medications Metoprolol Succinate* (Toprol XL*) 25 Mg Tab.sr.24h, 25 MG PO QPM, #30 TAB 09/10/18 Multivitamins* (Theragran*) 1 Tab Tab, 1 TAB PO DAILY, TAB 09/10/18 Amlodipine Besylate* (Amlodipine Besylate*) 10 Mg Tablet, 10 MG PO DAILY, #30 TAB 09/10/18 Losartan-Hydrochlorothiazide (Losartan-HCTZ) 100-25 Mg Tab, 1 TAB PO DAILY, TAB 09/10/18 Nitroglycerin* (Nitroglycerin* SL) 0.4 Mg Tab.subl, 0.4 MG SL Q5MIN PRN for CHEST PAIN, BOTTLE 08/12/18 Metoprolol Succinate* (Toprol XL*) 50 Mg Tab.er.24h, 50 MG PO QAM, #30 TAB 08/12/18 Apixaban* (Eliquis*) 5 Mg Tablet, 5 MG PO BID, TAB 08/12/18 Acetaminophen* (Acetaminophen*) 650 Mg Tablet, 650 MG PO Q6H PRN for PAIN AND OR ELEVATED TEMP, #30 TAB 08/12/18 Discontinued Reported Medications Calcium Carbonate* (Caltrate-600*) 600 MG Calcium Tab, 600 MG PO BID, TAB (1500 mg Calcium Carbonate) 08/12/18 Benazepril Hcl* (Benazepril Hcl*) 10 Mg Tablet, 30 MG PO DAILY, #30 TAB 08/12/18 Discontinued Scripts Diltiazem Hcl* (Cardizem SR*) 60 Mg Capsr, 60 MG PO DAILY, #60 CAP Prov:NGUYỄN MONTE NP 08/13/18 Primary Care Provider Daniela Maya Time spent on discharge: > 30 minutes Pending Labs Laboratory Tests Test 09/13/18 17:00 09/14/18 04:54 Platelet Count 56 10^3/UL (140-415) 106 10^3/UL (140-415) White Blood Count 8.9 10^3/ul (4.8-10.8) Red Blood Count 3.55 10^6/ul (4.20-5.40) Hemoglobin 10.6 g/dl (12.0-16.0) Hematocrit 32.7 % (37.0-47.0) Mean Corpuscular Volume 92.1 fl (82.0-101.0) Mean Corpuscular Hemoglobin 29.9 pg (29.0-33.0) Mean Corpuscular 32.4 g/dl (32.0-37.0) Hemoglobin Concent Red Cell Distribution Width 14.2 % (11.5-14.5) Mean Platelet Volume 11.9 fl (7.4-10.4) Immature Granulocytes % 0.600 % (0.001-0.429) Neutrophils % 75.4 % (39.0-77.0) Lymphocytes % 14.0 % (15.0-51.0) Monocytes % 6.5 % (0.0-11.0) Eosinophils % 3.0 % (0.0-7.0) Basophils % 0.5 % (0.0-2.0) Nucleated Red Blood Cells % 0.0 /100WBC (0.0-0.0) Immature Granulocytes # 0.050 10^3/ul (0.0-0.031) Neutrophils # 6.7 10^3/ul (1.6-7.5) Lymphocytes # 1.2 10^3/ul (0.8-2.9) Monocytes # 0.6 10^3/ul (0.3-0.9) Eosinophils # 0.3 10^3/ul (0.0-0.5) Basophils # 0.0 10^3/ul (0.0-0.1) Nucleated Red Blood Cells # 0.0 10^3/ul (0.0-0.0) Sodium Level 138 mmol/L (135-144) Potassium Level 3.9 mmol/L (3.5-5.1) Chloride Level 106 mmol/L (97-110) Carbon Dioxide Level 27 mmol/L (21-31) Anion Gap 5 (5-13) Blood Urea Nitrogen 12 mg/dl (7-20) Creatinine 0.77 mg/dl (0.44-1.00) Est Glomerular Filtrat mL/min (>60) Rate mL/min Glucose Level 94 mg/dl (70-220) Calcium Level 8.2 mg/dl (8.4-10.2) Magnesium Level 2.0 mg/dl (1.7-2.5) Total Bilirubin 0.1 mg/dl (0.2-1.3) Direct Bilirubin 0.00 mg/dl (0.00-0.20) Indirect Bilirubin 0.1 mg/dl (0-1.1) Aspartate Amino 15 IU/L (15-46) Transf (AST/SGOT) Alanine 14 IU/L (13-69) Aminotransferase (ALT/SGPT) Alkaline Phosphatase 57 IU/L (42-121) Troponin I < 0.012 ng/ml (0.000-0.120) Total Protein 6.0 g/dl (6.1-8.1) Albumin 2.9 g/dl (3.3-4.9) Globulin 3.10 g/dl (1.3-3.2) Albumin/Globulin Ratio 0.93 RUDDY DOSS MD Sep 14, 2018 11:40
--- NOTE | 2018-09-14 11:41 | PDOCDIS ---
Discharge Instructions CONDITION [id number] Patient Condition: [id number] Stable HOME CARE INSTRUCTIONS: [id number] Diet Instructions: [id number] Reduced Sodium ACTIVITY: [id number] Activity Restrictions: [id number] Slowly Increase Activity Do not Drive FOLLOW UP/APPOINTMENTS Follow-up Plan Dr Matthew 1wk PCP 1-2wks RUDDY DOSS MD Sep 14, 2018 11:41
[2018-09-14] MEDS ORDERED: GUAI120S26 PO (11:43)
[2018-09-14] MEDS ORDERED: METR500T PO (11:43)
[2018-09-14] MEDS ORDERED: CIPR500T4 PO (11:43)
[2018-09-14] MEDS ORDERED: LACT1CAP28 PO (11:43)
[2018-09-14] MEDS ORDERED: CIPROFLOXACIN 500 MG TAB PO SCH (12:00)
[2018-09-14] MEDS ORDERED: metroNIDAZOLE 500 MG TAB PO SCH (14:00)
[2018-09-15] MEDS ORDERED: LACTOBACILLUS RHAMNOSUS CAP PO SCH (21:00)
== END 2018-09-14 13:25 | disposition home or self-care (01) | DRG 339 ==
LOC: E/R 21:25 → 6WM 22:58 → SDS 09-11 00:30 → 6WM 09-11 03:29 → SDS 09-11 03:29 → 6WM 09-11 03:40 → UNDOADMIN 09-11 03:42 → 6WM 09-11 03:42
PROVIDERS: ADMIT Internal Medicine; ATTEND Internal Medicine
PROC: 0DTJ4ZZ Resection of Appendix, Percutaneous Endoscopic Approach (ICD-10-PCS; principal; 2018-09-11 01:30)
DX: K35.32 Acute appendicitis with perforation, localized peritonitis, and gangrene, without abscess (principal); J98.11 Atelectasis; I10 Essential (primary) hypertension; E78.5 Hyperlipidemia, unspecified; I48.2 Chronic atrial fibrillation; K80.20 Calculus of gallbladder without cholecystitis without obstruction
CPT/HCPCS: 36415; 71045; 74176; 80053; 81001; 83605; 83690; 83735; 84484; 85025; 85049; 85610; 85730; 86850; 86900; 86901; 87040; 87070; 87075; 87086; 87102; 88304; 93005; 96374; 97116; 97161; 97530; J0692; J0696; J1100; J2370; J2405; J2543; J2710; J3010; J3370; J3480; J7030; J7040